=== PATIENT | male | born 1945 | race Caucasian/White ===

== ENCOUNTER 2020-07-30 12:32 | Emergency (ER) | payer MEDICARE ==
[~2020-07-30 12:32] MED LIST: PROTONIX40 MG PO
[2020-07-30 13:32] LABS: HEMOGLOBIN 13.7 gm/dl (14.0-17.5); RED BLOOD COUNT 4.35 M/UL (4.20-5.50); WHITE BLOOD COUNT 4.3 K/UL (4.5-11.0)
== END 2020-07-30 14:50 | disposition home or self-care (01) ==
LOC: ER1 12:32
PROVIDERS: Physician Assistant Medical
DX: R00.1 Bradycardia, unspecified (principal); E11.9 Type 2 diabetes mellitus without complications; E78.5 Hyperlipidemia, unspecified; I11.9 Hypertensive heart disease without heart failure; Z79.84 Long term (current) use of oral hypoglycemic drugs
CPT/HCPCS: 71045; 80053; 82550; 82553; 83874; 84439; 84443; 84484; 85025; 93005; 99284

== ENCOUNTER 2020-08-06 16:58 | Emergency (ER) | payer MEDICARE ==
[2020-08-06] MEDS ORDERED: IBUPROFEN400 MG PO (19:47)
== END 2020-08-06 19:57 | disposition home or self-care (01) ==
LOC: ER1 16:58
DX: S82.891A Other fracture of right lower leg, initial encounter for closed fracture (principal); S93.601A Unspecified sprain of right foot, initial encounter; I48.91 Unspecified atrial fibrillation; E11.9 Type 2 diabetes mellitus without complications; I10 Essential (primary) hypertension; Z86.16 Personal history of COVID-19; X50.1XXA Overexertion from prolonged static or awkward postures, initial encounter
CPT/HCPCS: 73610; 73630; 99283